=== PATIENT | female | born 1950 | race Caucasian/White ===

== ENCOUNTER → 2017-03-17 | Outpatient (CLI) | payer BC ==
[~2017-03-17] MED LIST: ANAFRANIL50 MG PO; DEXILANT60 MG PO; FEMARA 2.5 MG2.5 MG PO; ISORDIL20 MG PO; LEXAPRO20 MG PO; LIPITOR40 MG PO; NORVASC2.5 MG PO; RAMIPRIL2.5 MG PO; SOTALOL80 MG PO; XANAX0.5 MG PO
--- NOTE | ~2017-03-17 | ESTC ---
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 Risks, complications and alternative treatments were reviewed. Written consent was obtained. Medications Reviewed with Patient prior to Procedure. Procedure Procedure Type: Nuclear Stress Test:Exercise, Cardiolite Stress Test Procedure Start time: 03/17/2017 00:00 Risk Factors The patient risk factors include:prior PCI;Current/Recent(w/in 1 year) tobacco use, treated hypercholesterolemia, treated hypertension, dyslipidemia and prior MS . Conclusions Summary Cardiolite SPECT images demonstrates a mild to moderate defect noted in the anterior and anteroseptal regions on both the stress and rest images. No evidence of inducible wall motion abnormalities. Findings suggestive of attenuation defect. Normal TID ratio Gated images demonstrate normal left ventricular systolic function without inducible wall motion abnormalities. LVEF is 64% Stress Protocols Resting ECG Sinus Rhythm with non specific T wave changes Resting HR:68 bpm Resting BP:174/76 mmHg Pre-stress physical exam: Wanted to try treadmill stress. Patient assessed by Ale Reece APRN prior to testing. Stress Protocol:Pharmacologic Predicted HR: 156 bpm HR response: Appropriate BP response: Appropriate Reason for termination:Infusion complete ECG Findings Sinus rhythm without significant ST changes although there was ST depression in II, III, AVF, V4, V5, V6. Arrhythmias No rhythm abnormality. Symptoms Was too short of breath so test changed to Lexiscan. HR was not achieved with treadmill. At 10:06 the Lexiscan was injected followed by the cardiolite. Complains of shortness breath and chest pain with the Lexiscan. Chest pain continued for 5-6 minutes into recovery. Eventually went away. Stress Interpretation Appropriate hemodynamic response to Lexiscan. No significant ST-T wave changes with Lexiscan. ECG portion is negative for ischemia by diagnostic criteria. Stress supervision and interpretation provided by Janell Reece APRN . Imaging Results Applied corrections - Motion correction applied High risk findings Summed scores - Summed stress score: 7 - Summed rest score: 9 - Summed difference score: -2 Stress ejection Ejection fraction:65 % EDV :82 ml ESV :29 ml Stroke volume :53 ml LV mass :114 gr Imaging Protocols Rest Stress Isotope:Tc99m Sestamibi IV Isotope: Tc99m Sestamibi IV Isotope dose:10.3 mCi Isotope dose:30.7 mCi Date:03/17/2017 07:18 Date:03/17/2017 10:12 Technique: Gated SPECT Supine Scan Time:45-60 minutes post injection Medical History Admission Data Admission date: 03/17/2017 Admission Time: 06:39 Hospital Status: Outpatient. Signatures dtt: Luis Martines (cardio) dtd: 03/17/17 0000 Physician Self Edit
== END | disposition disaster alternative care site (69) ==
LOC: GRAD 03-10 07:30
DX: R07.9 Chest pain, unspecified (principal); E78.00 Pure hypercholesterolemia, unspecified; I10 Essential (primary) hypertension; E78.5 Hyperlipidemia, unspecified; I25.2 Old myocardial infarction; Z95.5 Presence of coronary angioplasty implant and graft; Z72.0 Tobacco use
CPT/HCPCS: A9500; J2765; J2785